=== PATIENT | female | born 1950 | race Two or more races ===

== ENCOUNTER 2019-01-13 14:38 | Inpatient (IN) | payer OTHER ==
[~2019-01-13] VITALS: Ht 147.3 cm; Wt 57.6 kg
--- NOTE | 2019-01-13 14:55 | NUR ---
M/S ADMISSION NOTES PATIENT ADMITTED TODAY, DIRECT TRANSFER FROM [facility]. PATIENT ALERT AND ORIENTED X4, TAGALOG AND [place] SPEAKING. PATIENT IN NO RESPIRATORY DISTRESS. NO COMPLAINT OF PAIN AT THIS TIME. SKIN ASSESSED, NO SKIN BREAKDOWN. SKIN WARM TO TOUCH. IV ON THE RAC #20G, INTACT AND PATENT, NO REDNESS, NO INFILTRATION NOTED. BELONGINGS ACCOUNTED AND SIGNED. PATIENT'S NEEDS ATTENDED. MD ADMISSION ORDERS CARRIED OUT. WILL CONTINUE TO MONITOR.
[2019-01-13 16:00] VITALS: BP 133/64
[2019-01-13] MEDS ORDERED: MAG HYDROX/AL HYDROX/SIMETH 30 ML UDC PO PRN (16:30)
[2019-01-13] MEDS ORDERED: MAGNESIUM HYDROXIDE 30 ML UDC PO PRN (16:30)
[2019-01-13] MEDS ORDERED: HYDROCODONE/APAP 10/325MG 1 EA TABLET PO PRN (16:30)
[2019-01-13] MEDS ORDERED: Z GUARD REMEDY 2 OZ OINT TP PRN (16:30)
[2019-01-13] MEDS ORDERED: HYDROCODONE/APAP 5/325MG 1 EACH TABLET PO PRN (16:30)
[2019-01-13] MEDS ORDERED: ACETAMINOPHEN 325 MG TABLET PO PRN (16:30)
[2019-01-13] MEDS ORDERED: TEMAZEPAM 15 MG CAPSULE PO PRN (16:30)
[2019-01-13] MEDS ORDERED: ONDANSETRON HCL/PF 4 MG/2 ML VIAL IVP PRN (16:30)
[2019-01-13] MEDS ORDERED: MECLIZINE HCL 12.5 MG TABLET PO PRN (17:00)
[2019-01-13] MEDS ORDERED: ALLO100T PO (17:48)
[2019-01-13] MEDS ORDERED: CALC-1237 PO (17:48)
[2019-01-13] MEDS ORDERED: SIMV10TA6 PO (17:48)
[2019-01-13] MEDS ORDERED: LOSA100T31 PO (17:48)
[2019-01-13] MEDS ORDERED: OMEG1CAP40 PO (17:48)
[2019-01-13] MEDS ORDERED: AMLO10TA7 PO (17:48)
[2019-01-13] MEDS ORDERED: LIDO5CRE7 TP (17:50)
--- NOTE | 2019-01-13 19:27 | NUR ---
M/S RN NOTES PATIENT IN NO RESPIRATORY DISTRESS, NO C/O PAIN. PATIENT COMFORTABLE AT THIS TIME. AUTO INSPECTION SPECIALIST ON SINUS RHYTHM 73. PATIENT'S NEEDS ATTENDED. WILL ENDORSE TO ONCOMING NURSE.
[2019-01-13 19:53] VITALS: BP 127/64
--- NOTE | 2019-01-13 20:02 | NUR ---
TELE/RN ON INITIAL ROUND AT 1930, PATIENT WAS SLEEPING, APPEAR COMFORTABLE, NO DISTRESS NOTED, BED ALARM ON, CALL LIGHT IN REACH. WILL MONITOR.
[2019-01-13 23:50] VITALS: BP 133/65
[2019-01-14 04:24] VITALS: BP 135/62
--- NOTE | 2019-01-14 06:28 | NUR ---
TELE/RN PATIENT IS STILL SLEEPING AT THIS TIME, APPEAR COMFORTABLE, NO SIGNS OF DISTRESS NOTED, CALL LIGHT IN REACH. ALL NEEDS ATTENDED AT THIS TIME, WILL CONTINUE TO MONITOR.
[2019-01-14 06:41] LABS: BASOPHILS % (AUTO) 0.1 % (0.0-2.0); EOSINOPHILS % (AUTO) 0.7 % (0.0-6.0); HEMATOCRIT 39 % (33-45); HEMOGLOBIN 13.3 g/dL (11.5-14.8); LYMPHOCYTES # (AUTO) 1.6 /CMM (0.8-4.8); LYMPHOCYTES % (AUTO) 25.6 % (20.0-44.0); MEAN CORPUSCULAR HGB CONC 34 g/dl (31.0-36.0); MEAN CORPUSCULAR VOLUME 88 fL (82-100); MONOCYTES # (AUTO) 0.6 /CMM (0.1-1.30); MONOCYTES % (AUTO) 9.2 % (2.0-12.0); NEUTROPHILS # (AUTO) 3.9 /CMM (1.8-8.9); NEUTROPHILS % (AUTO) 64.4 % (43.0-81.0); PLATELET COUNT (AUTO) 255 /CMM (150-450); RED BLOOD CELL COUNT(AUTO) 4.41 MIL/uL (4.0-5.2); WHITE BLOOD COUNT (AUTO) 6.1 K/uL (4.3-11.0)
[2019-01-14 06:44] LABS: CALCIUM, SERUM 9.1 mg/dL (8.5-10.1); CREATININE 0.7 mg/dL (0.6-1.3); MAGNESIUM 2.1 mg/dL (1.8-2.4); PHOSPHORUS 2.5 mg/dL (2.5-4.9); POTASSIUM 3.4 mmol/L (3.5-5.1)
[2019-01-14 06:57] LABS: THYROID STIMULATING HORMONE 1.904 uIU/mL (0.358-3.74)
[2019-01-14] MEDS ORDERED: PANTOPRAZOLE 40 MG TABLET.DR PO SCH (07:30)
[2019-01-14 08:00] VITALS: BP 125/63
--- NOTE | 2019-01-14 08:00 | NUR ---
M/S RN NOTES PATIENT AWAKE, LYING IN BED, ALERT AND ORIENTED X4. NO RESPIRATORY DISTRESS NOTED, NO C/O PAIN. PATIENT'S NEEDS ATTENDED. BED ON LOWEST LOCKED POSITION, CALL LIGHT WITHIN REACH. WILL CONTINUE TO MONITOR.
[2019-01-14] MEDS ORDERED: ALLOPURINOL 100 MG TABLET PO SCH (11:00)
[2019-01-14] MEDS ORDERED: AMLODIPINE BESYLATE 10 MG TABLET PO SCH (11:00)
[2019-01-14] MEDS ORDERED: SIMVASTATIN 10 MG TABLET PO SCH (11:00)
[2019-01-14] MEDS ORDERED: LOSARTAN POTASSIUM 50 MG TABLET PO SCH (11:00)
[2019-01-14] MEDS ORDERED: POTASSIUM CHLORIDE 20 MEQ TAB.PRT.SR PO ONE (11:00)
[2019-01-14 12:00] VITALS: BP 121/74
--- NOTE | 2019-01-14 17:35 | NUR ---
M/S RN NOTES PATIENT DISCHARGED IN STABLE CONDITION, VSS. PATIENT IN NO RESPIRATORY DISTRESS, NO C/O PAIN. PATIENT'S SKIN ASSESSED, NO SKIN BREAKDOWN. DISCHARGE INSTRUCTIONS GIVEN TO PATIENT AND DAUGHTER, VERBALIZED UNDERSTANDING. IV REMOVED AND APPLIED PRESSURE DRESSING. BELONGINGS ACCOUNTED FOR AND SIGNED. PATIENT ESCORTED TO LOBBY VIA WHEELCHAIR WITH DAUGHTER AND SON IN LAW. PATIENT LEFT IN PRIVATE CAR.
== END 2019-01-14 17:25 | disposition home or self-care (01) | DRG 641 ==
LOC: TELE 14:38
PROVIDERS: ADMIT Nurse Practitioner Acute Care; ATTEND Nurse Practitioner Acute Care
DX: E87.1 Hypo-osmolality and hyponatremia (principal); E78.5 Hyperlipidemia, unspecified; T50.2X5A Adverse effect of carbonic-anhydrase inhibitors, benzothiadiazides and other diuretics, initial encounter; E87.6 Hypokalemia; I10 Essential (primary) hypertension; Y92.9 Unspecified place or not applicable; M10.9 Gout, unspecified; Z98.890 Other specified postprocedural states; Y92.009 Unspecified place in unspecified non-institutional (private) residence as the place of occurrence of the external cause; R73.9 Hyperglycemia, unspecified; R42 Dizziness and giddiness
CPT/HCPCS: 36415; 80048-TC; 80061-TC; 83735-TC; 84100-TC; 84443-TC; 85025-TC; 87081-TC; 93307-TC; 97116-TC; 97530-TC; G0378